=== PATIENT | male | born 1975 | race Caucasian/White ===

== ENCOUNTER 2021-11-06 04:34 | Day surgery (SDC) | payer OTHER ==
[2021-11-01 15:07] VITALS: BMI 26.6
[2021-11-06] MEDS ORDERED: MIDAZOLAM HCL 2 MG/2 ML SINGLE DOSE VIAL ONE (11:29)
[2021-11-06 14:48] VITALS: BP 132/79; PULSE 89; TEMP 97.9
[2021-11-06] MEDS ORDERED: ACETAMINOPHEN 500 MG TABLET (FP) PO PRN (15:36)
[2021-11-06] MEDS ORDERED: ONDANSETRON 4 MG/2 ML VIAL IVPUSH PRN (15:36)
[2021-11-06] MEDS ORDERED: LACTATED RINGERS SOLUTION 1,000 ML IV SCH (15:45)
== END 2021-11-06 14:35 | disposition home or self-care (01) ==
LOC: JASU-SURG 04:34
PROVIDERS: ATTEND Urology
PROC: 0TF4XZZ Fragmentation in Left Kidney Pelvis, External Approach (ICD-10-PCS; principal; 2021-11-06 13:00)
DX: N20.0 Calculus of kidney (principal); I10 Essential (primary) hypertension; E11.9 Type 2 diabetes mellitus without complications
CPT/HCPCS: 82962

== ENCOUNTER 2022-01-15 04:35 | Day surgery (SDC) | payer OTHER ==
[2022-01-11 19:02] VITALS: BMI 27.2
[2022-01-15] MEDS ORDERED: MIDAZOLAM HCL 2 MG/2 ML SINGLE DOSE VIAL ONE (14:29)
[2022-01-15 16:10] VITALS: BP 117/78; PULSE 78; TEMP 98.4
== END 2022-01-15 16:15 | disposition home or self-care (01) ==
LOC: JASU-SURG 04:35
PROVIDERS: ATTEND Urology
PROC: 0TF3XZZ Fragmentation in Right Kidney Pelvis, External Approach (ICD-10-PCS; principal; 2022-01-15 13:30)
DX: N20.0 Calculus of kidney (principal)
CPT/HCPCS: 82962